=== PATIENT | male | born 1965 | race Caucasian/White ===

== ENCOUNTER 2019-12-08 23:15 | Observation (INO) | payer OTHER ==
[~2019-12-08] VITALS: Ht 177.8 cm; Wt 91.8 kg
--- NOTE | 2019-12-08 23:34 | NUR ---
PT. TO ROOM 10 VIA EMS WITH C/O FEELING SOB X 5 WEEKS.
[2019-12-08 23:52] LABS: HEMATOCRIT 46.9 % (39.0-50.0); HEMOGLOBIN 15.3 g/dl (14.0-18.0); IMMATURE GRANULOCYTES 1.1 % (0.0-5.0); MEAN CELL VOLUME 91.4 fL CALC (80.0-100.0); MEAN CORPUSCULAR HGB 29.8 pG CALC (26.0-32.0); MEAN CORPUSCULAR HGB CONC 32.6 g/L CALC (32.0-36.0); NEUT# 6.53 thou/uL (1.82-7.42); RED BLOOD COUNT 5.13 mill/uL (4.70-6.10); RED CELL DISTRI WIDTH 13.2 % (11.5-15.5)
[2019-12-09 00:06] LABS: ALKALINE PHOSPHATASE 111 u/l (38-126); ANION GAP 15 (6-22 (CALC)); BILIRUBIN, TOTAL 0.4 mg/dL (0.0-1.4); BUN 19 mg/dL (9-20); BUN/CREATININE RATIO 25 (12-20 (CALC)); CARBON DIOXIDE 29 mmol/l (22-30); CHLORIDE 97 mmol/l (95-108); CREATININE 0.8 mg/dL (0.7-1.3); GFR > 60 ML/MIN (>=60 (CALC)); GFR FOR AFR.AMER. > 60 ML/MIN (>=60 (CALC)); POTASSIUM 4.2 mmol/l (3.5-5.1); SGOT/AST 47 u/l (17-59); SODIUM 137 mmol/l (137-146); TOTAL PROTEIN 7.5 g/dL (6.3-8.2)
[2019-12-09 00:08] LABS: PROTHROMBIN TIME 10.2 SECONDS (9.0-12.5)
[2019-12-09 00:16] LABS: MYOGLOBIN 32 ng/mL (0 - 121)
--- NOTE | 2019-12-09 00:27 | NUR ---
TEMP 99.2. BLANKET GIVEN AND SOCKS TO FEET. O2 SAT 92 ON 2 LPM INCREASED TO 3 LPM BY MD. APONTE AT BEDSIDE.
--- NOTE | 2019-12-09 01:17 | NUR ---
PO TAMIFLU GIVEN PER MD ORDER.
--- NOTE | 2019-12-09 01:20 | NUR ---
IN ROOM TO DISCUSS CLINICAL FINDIONGS WITH PT. VERBALIZED UNDERSTANDING.
[2019-12-09 01:41] LABS: URINE BILIRUBIN - DIPSTICK NEGATIVE (NEGATIVE); URINE BLOOD DIPSTICK NEGATIVE (NEGATIVE); URINE COLOR YELLOW; URINE GLUCOSE - DIPSTICK NEGATIVE (NEGATIVE); URINE KETONE 15 mg/dL (NEGATIVE); URINE LEUK ESTERASE NEGATIVE (NEGATIVE); URINE NITRITE - DIPSTICK NEGATIVE (Negative); URINE PROTEIN - DIPSTICK NEGATIVE (NEG-TRACE); URINE SPECIFIC GRAVITY 1.025; URINE UROBILINOGEN - DIPSTICK 0.2 E.U./dL (0.2)
--- NOTE | 2019-12-09 01:49 | NUR ---
Admission Note Report Given to: BRUCE RN Transported by: Wheelchair X Stretcher Transported with: X Nurse Transporter X Patent IV X O2 X Billing Assistant Location: ICU X [facility]
--- NOTE | 2019-12-09 01:55 | NUR ---
PT. TAKEN TO SD FLOOR VIA STRETCHER, NO C/O.
--- NOTE | 2019-12-09 01:55 | NUR ---
PT ARRIVED TO THE FLOOR VIA STRETCHER ACCOMPANIED BY ED STAFF AND X2 GUARDS. PT ALERT AND ORIENTED. RESPIRATIONS EVEN AND UNLABORED ON O2 @ 2L VIA NC. PT AMBULATED FROM STRETCHER TO THE BATHROOM AND TO BED, GATE STEADY. ASSESSMENT COMPLETED AND VS OBTAINED. LUNGS SOUND CLEAR. PEDAL PULSES STRONG. SKIN IS INTACT. PT REPORTS FEELING A STEADY PRESSURE IN HIS CHEST. PT ALSO REPORTS HAVINIG BLOODY STOOLS, NOT WHITNESSED BY WRITTER. PT ORIENTED TO ROOM AND CALL [facility]. SAFETY PRECAUTIONS IN PLACE. WILL CONTINUE TO [facility].
--- NOTE | 2019-12-09 04:35 | NUR ---
PT RESTING IN BED. GUARDS x2 AT BEDSIDE. NO S/S OF DISTRESS AT THIS TIME.
--- NOTE | 2019-12-09 07:30 | NUR ---
RESTING IN BED. 2 GUARDS AT BEDSIDE.
[2019-12-09 09:00] VITALS: BP 116/66
--- NOTE | 2019-12-09 09:00 | NUR ---
RESTING IN BED, WATCHING TV. RESP NON-LABORED. LUNGS CLEAR. DENIES COUGH. AFEBRILE THIS MORNING. SHIFT ASSESSMENT COMPLETED. DISCUSED PLAN OF CARE. DENIES NEEDS AT THIS TIME. CALL [facility] IN REACH. 2 GUARDS WITH PATIENT .
[2019-12-09 09:31] VITALS: BP 116/66
[2019-12-09 11:58] VITALS: BP 103/60
[2019-12-09 11:58] LABS: ANION GAP 11 (6-22 (CALC)); BUN 14 mg/dL (9-20); BUN/CREATININE RATIO 25 (12-20 (CALC)); CARBON DIOXIDE 29 mmol/l (22-30); CHLORIDE 100 mmol/l (95-108); CREATININE 0.6 mg/dL (0.7-1.3); GFR > 60 ML/MIN (>=60 (CALC)); GFR FOR AFR.AMER. > 60 ML/MIN (>=60 (CALC)); MAGNESIUM 2.1 mg/dL (1.6-2.3); SODIUM 136 mmol/l (137-146)
--- NOTE | 2019-12-09 12:10 | NUR ---
MOIST NON-PRODUCTIVE COUGH. IV INFUSING WITHOUT INCIDENT
--- NOTE | 2019-12-09 16:15 | NUR ---
O2 DECREASED FROM 4 L TO 2 L NC. PATIENT RESTING IN BED. NO COMPLAINTS VOICED. IV IN LAC WITH NS INFUSING AT 125 NL/HR.
--- NOTE | 2019-12-09 16:30 | NUR ---
O2 SAT 95% ON 2 L NC. O2 DECREASED TO 1 L NC.
--- NOTE | 2019-12-09 16:45 | NUR ---
O2 SAT MAINTAINING AT 95% PATIENT ON RA.
--- NOTE | 2019-12-09 17:30 | NUR ---
PATIENT O2 SAT 95% ON RA. RESP NO-LABORED.
[2019-12-09] MEDS ORDERED: TAM75CAP PO (17:31)
[2019-12-09] MEDS ORDERED: PREDNISONE10 MG PO (17:31)
[2019-12-09] MEDS ORDERED: ZITHROMAX500 MG PO (17:31)
[2019-12-09] MEDS ORDERED: ALBUTEROL108 MCG/AC IN (18:50)
--- NOTE | 2019-12-09 19:41 | NUR ---
Discharge instructions given. Patient verbalizes understanding of same. [facility] stable [facility]. All belongings sent with pt.
== END 2019-12-09 19:41 | DRG 194 ==
LOC: ED 23:15 → ED-I 23:57 → ED 23:57 → ED-I 12-09 00:57 → ED 12-09 01:20 → MS2 12-09 01:21
PROVIDERS: Emergency Medicine; Nurse Practitioner Family; ADMIT Internal Medicine; ATTEND Internal Medicine
DX: J10.1 Influenza due to other identified influenza virus with other respiratory manifestations (principal); J44.1 Chronic obstructive pulmonary disease with (acute) exacerbation; R09.02 Hypoxemia; R07.9 Chest pain, unspecified; Z87.01 Personal history of pneumonia (recurrent)
CPT/HCPCS: G0378